=== PATIENT | female | born 1985 | race Caucasian/White ===

== ENCOUNTER 2018-07-24 20:29 | Emergency (ER) | payer SELFPAY ==
[2018-07-24] MEDS ORDERED: Orphenadrine Citrate 60 MG/2 ML VIAL ONE (21:40)
[2018-07-24] MEDS ORDERED: Ketorolac Tromethamine 60 MG/2 ML VIAL ONE (21:40)
--- NOTE | 2018-07-24 22:00 | RAD ---
LUMBAR SPINE: 07/24/18 Three views. HISTORY: Injury to back with pain. Lumbar vertebra maintain normal height and alignment. Mild loss of disc space at L4-5. Mild degenerat karlee spurring. Mild facet hypertrophy. No evidence of spondylolisthesis. No compression deformity or a cute fracture identified. IMPRESSION: Mild degenerative changes of the lumbar spine as described. No acute process apparent. POS: [facility]
== END 2018-07-24 22:07 | disposition home or self-care (01) ==
LOC: NAV ERS 20:29
DX: M54.5 Low back pain (principal); W55.12XA Struck by horse, initial encounter
CPT/HCPCS: 72100; 96372; J1885; J2360